=== PATIENT | female | born 1965 | race Caucasian/White ===

== ENCOUNTER 2020-10-09 12:44 | Emergency (ER) | payer OTHER | END 2020-10-09 16:40 | disposition home or self-care (01) | LOC: ER1 12:44 | DX: B02.9 Zoster without complications (principal); Z90.710 Acquired absence of both cervix and uterus; Z90.49 Acquired absence of other specified parts of digestive tract; F17.200 Nicotine dependence, unspecified, uncomplicated | CPT/HCPCS: 99283 ==